=== PATIENT | male | born 1990 | race African-American/Black ===

== ENCOUNTER 2016-12-23 11:53 | Emergency (ER) | payer SELFPAY ==
[~2016-12-23] VITALS: Ht 172.7 cm; Wt 77.2 kg
[~2016-12-23 11:53] MED LIST: ACET-76 PO
[2016-12-23 11:55] VITALS: BP 115/70
[2016-12-23] MEDS ORDERED: CEFTRIAXONE 250 MG IM ONE (12:30)
[2016-12-23] MEDS ORDERED: AZITHROMYCIN 500 MG TABLET PO ONE (12:30)
[2016-12-23] MEDS ORDERED: LIDOCAINE 1%, 20ML ONE (12:33)
[2016-12-23] MEDS ORDERED: AZITHROMYCIN 250 MG TABLET ONE (12:33)
[2016-12-23] MEDS ORDERED: CEFTRIAXONE 250 MG ONE (12:33)
== END 2016-12-23 12:59 | disposition home or self-care (01) ==
LOC: ED 12:31
DX: Z20.2 Contact with and (suspected) exposure to infections with a predominantly sexual mode of transmission (principal)
CPT/HCPCS: 87491; 87591; 96372; 99284; J0696

== ENCOUNTER 2017-04-13 17:52 | Emergency (ER) | payer OTHER ==
[~2017-04-13] VITALS: Ht 175.3 cm; Wt 92.3 kg
[2017-04-13 17:53] VITALS: BP 106/71
[2017-04-13] MEDS ORDERED: AZITHROMYCIN 500 MG TABLET PO ONE (18:30)
[2017-04-13] MEDS ORDERED: CEFTRIAXONE 250 MG IM ONE (18:30)
[2017-04-13] MEDS ORDERED: AZITHROMYCIN 500 MG TABLET ONE ×2 (18:55→18:59)
[2017-04-13] MEDS ORDERED: CEFTRIAXONE 250 MG ONE (18:55)
== END 2017-04-13 19:13 | disposition home or self-care (01) ==
LOC: ED 19:00
DX: A74.9 Chlamydial infection, unspecified (principal)
CPT/HCPCS: 96372; 99283; J0696

== ENCOUNTER 2017-08-11 05:34 | Emergency (ER) | payer SELFPAY ==
[~2017-08-11] VITALS: Ht 167.6 cm; Wt 90.0 kg
[2017-08-11 05:40] VITALS: BP 122/74
[2017-08-11] MEDS ORDERED: IBUPROFEN 200 MG TABLET ONE (05:54)
[2017-08-11] MEDS ORDERED: HYDROcodone/APAP 5/325 TABLET ONE (05:54)
[2017-08-11] MEDS ORDERED: HYDROcodone/APAP 5/325 TABLET PO ONE (06:00)
[2017-08-11] MEDS ORDERED: IBUPROFEN 200 MG TABLET PO ONE (06:00)
== END 2017-08-11 06:37 | disposition home or self-care (01) ==
LOC: ED 05:58
DX: K08.89 Other specified disorders of teeth and supporting structures (principal)
CPT/HCPCS: 99283

== ENCOUNTER 2018-05-02 12:17 | Emergency (ER) | payer OTHER ==
[~2018-05-02] VITALS: Ht 177.8 cm; Wt 96.0 kg
[2018-05-02 12:28] VITALS: BP 109/71
[2018-05-02] MEDS ORDERED: AZITHROMYCIN 250 MG TABLET ONE (12:49)
[2018-05-02] MEDS ORDERED: LIDOCAINE-MPF 1%, 2ML ONE (12:49)
[2018-05-02] MEDS ORDERED: CEFTRIAXONE 250 MG ONE (12:49)
[2018-05-02] MEDS ORDERED: CEFTRIAXONE 250 MG IM ONE (13:00)
[2018-05-02] MEDS ORDERED: AZITHROMYCIN 500 MG TABLET PO ONE (13:00)
== END 2018-05-02 13:40 | disposition home or self-care (01) ==
LOC: ED 13:17
DX: A74.9 Chlamydial infection, unspecified (principal)
CPT/HCPCS: 87491; 87591; 96372; 99284; J0696

== ENCOUNTER 2019-02-21 07:41 | Emergency (ER) | payer SELFPAY ==
[~2019-02-21] VITALS: Ht 172.7 cm; Wt 92.7 kg
[2019-02-21 07:48] VITALS: BP 121/86
== END 2019-02-21 08:53 | disposition home or self-care (01) ==
LOC: ED 08:47
DX: J02.8 Acute pharyngitis due to other specified organisms (principal); K08.89 Other specified disorders of teeth and supporting structures
CPT/HCPCS: 99282; 99283

== ENCOUNTER 2020-03-13 16:47 | Emergency (ER) | payer SELFPAY ==
[~2020-03-13] VITALS: Ht 172.7 cm; Wt 95.0 kg
--- NOTE | 2020-03-13 18:07 | NUR ---
ENVIRONMENTAL PROGRAMS MANAGER: PT TO ROOM FROM LOBBY
[2020-03-13] MEDS ORDERED: AZITHROMYCIN 500 MG TABLET PO ONE (19:00)
[2020-03-13] MEDS ORDERED: CEFTRIAXONE 250 MG IM ONE (19:00)
[2020-03-13] MEDS ORDERED: CEFTRIAXONE 250 MG ONE (19:06)
[2020-03-13] MEDS ORDERED: AZITHROMYCIN 500 MG TABLET ONE (19:06)
[2020-03-13 20:09] VITALS: BP 116/79
== END 2020-03-13 20:10 | disposition home or self-care (01) ==
LOC: ED 19:09
DX: N34.2 Other urethritis (principal)
CPT/HCPCS: 87491; 87591; 96372; 99283; J0696